=== PATIENT | female | born 1965 | race Caucasian/White ===

== ENCOUNTER 2020-04-06 17:21 | Emergency (ER) | payer OTHER ==
[~2020-04-06] VITALS: Ht 157.5 cm; Wt 66.2 kg
[2020-04-06] MEDS ORDERED: SYNTHROID112 MCG (17:45)
[2020-04-06] MEDS ORDERED: KEPPRA750 MG (17:45)
[2020-04-06] MEDS ORDERED: TOPAMAX50 MG (17:45)
[2020-04-06] MEDS ORDERED: IBERSALTAN (17:46)
[2020-04-09] MEDS ORDERED: IRBESARTAN-HCT1 EACH PO (03:47)
[2020-04-09] MEDS ORDERED: ZOFRAN4 MG PO (05:57)
== END 2020-04-06 18:29 | disposition home or self-care (01) ==
LOC: ER 17:21
DX: L02.411 Cutaneous abscess of right axilla (principal)

== ENCOUNTER → 2020-04-09 | Emergency (ER) | payer OTHER ==
[~2020-04-09] VITALS: Ht 154.9 cm; Wt 65.8 kg
[~2020-04-09] MED LIST: IBERSALTAN; IRBESARTAN-HCT1 EACH PO; KEPPRA750 MG; SYNTHROID112 MCG; TOPAMAX50 MG; ZOFRAN4 MG PO
== END | disposition home or self-care (01) ==
LOC: ER 03:26
DX: R42 Dizziness and giddiness (principal); M79.621 Pain in right upper arm